=== PATIENT | female | born 1930 | race Caucasian/White ===

== ENCOUNTER 2019-06-26 16:25 | Observation (INO) ==
--- NOTE | 2019-06-26 17:00 | Emergency Department Note ---
History of Present Illness General Chief complaint: Chest Pain Stated complaint: CHEST PAIN Time Seen by Provider: 06/26/19 16:37 Source: patient and family Limitations: no limitations History of Present Illness Patient comes in as described above. She is brought in by EMS after having chest pain in her left shoulder today. She says she had left shoulder chest pain yesterday most of the day but it got worse today and was in her chest. It started this afternoon. She took a nitro and seemed to help EMS arrived they gave her 324 of aspirin as well as a second nitro spray now she has no pain. She has a history of angina. She normally walks without any chest pain or problems. She has been tired her last couple days. She felt like her heart was racing. She is had no diaphoresis. She has slight nausea but no vomiting. She has no history of similar complaints in the past. No fever chills or nausea vomiting. No flulike symptoms. No bowel or bladder problems. No blood or melena stool. Home Medications Home Medications Medication Instructions Recorded Confirmed Type aspirin [Aspir-81] 81 mg PO HS 06/26/19 06/26/19 History calcium carbonate [Calcium 600] 600 mg PO BID 06/26/19 06/26/19 History cinnamon bark [Cinnamon] 500 mg PO DAILY 06/26/19 06/26/19 History cyanocobalamin (vitamin B-12) 250 mcg PO HS 06/26/19 06/26/19 History [Vitamin B-12] diltiazem HCl [Cardizem CD] 120 mg PO QAM 06/26/19 06/26/19 History empagliflozin [Jardiance] 10 mg PO QAM 06/26/19 06/26/19 History ezetimibe-simvastatin [Vytorin 1 tab PO PM 06/26/19 06/26/19 History 10-10] flaxseed oil 1,000 mg PO BID 06/26/19 06/26/19 History fluticasone propionate [Flonase 2 spray INTRANASAL DAILY 06/26/19 06/26/19 History Allergy Relief] glucosamine sulfate [Glucosamine] 500 mg PO QAM 06/26/19 06/26/19 History hydrochlorothiazide 25 mg PO QAM 06/26/19 06/26/19 History levalbuterol tartrate [Xopenex HFA] 1 puff INHALATION Q4H PRN 06/26/19 06/26/19 History levothyroxine [Levoxyl] 50 mcg PO QAM 06/26/19 06/26/19 History lorazepam [Ativan] 0.5 mg PO Q6H PRN 06/26/19 06/26/19 History magnesium oxide 400 mg PO DAILY 06/26/19 06/26/19 History metoprolol succinate [Toprol XL] 50 mg PO QAM 06/26/19 06/26/19 History dimoirdp-xjm-GD-lycopen-lutein 1 tab PO DAILY 06/26/19 06/26/19 History [Centrum Silver] nitroglycerin [Nitrostat] 0.4 mg SUBLINGUAL UD 06/26/19 06/26/19 History potassium chloride [Klor-Con M10] 10 meq PO TID 06/26/19 06/26/19 History ranitidine HCl 300 mg PO HS 06/26/19 06/26/19 History vitamin E 200 unit PO BID 06/26/19 06/26/19 History Allergies Allergy/AdvReac Type Severity Reaction Status Date / Time adhesive Allergy Unknown Verified 06/26/19 18:08 Penicillins Allergy Unknown Verified 06/26/19 18:08 FLACO Inhibitors AdvReac Intermediate COUGH Verified 06/26/19 18:08 Past Med/Surg History Social History Feels Safe at Home: Yes Smoking Status: Never smoker Immunizations: Past medical historyshe has a history of arrhythmia and is followed by Dr. Orlando. Denies history of heart attack. She is a type II diabetic and is on pills for this. Denies that she is on any blood thinners. SHX:Smoker. Lives independently Review of Systems A total of 10 systems reviewed and were otherwise negative Physical Exam Vital Signs Vital Signs - 24 hr 06/26/19 16:31 06/26/19 16:38 06/26/19 16:43 Temperature 36.2 C L Temperature Source Oral Pulse Rate 82 75 75 Pulse Rate from SpO2 Sensor 78 76 Respiratory Rate 18 18 18 Blood Pressure 163/103 H 163/103 H Blood Pressure Mean 120 123 Pulse Oximetry 94 96 95 Oxygen Delivery Method Room Air Sepsis Recent Fever Within 48 Hours No Sepsis Action Taken by Nursing No Action Required 06/26/19 17:00 06/26/19 17:30 06/26/19 17:31 Temperature Temperature Source Pulse Rate 72 75 80 Pulse Rate from SpO2 Sensor 82 88 83 Respiratory Rate 17 21 14 Blood Pressure 156/82 H 175/94 H Blood Pressure Mean 112 104 Pulse Oximetry 94 94 95 Oxygen Delivery Method Sepsis Recent Fever Within 48 Hours Sepsis Action Taken by Nursing 06/26/19 17:32 06/26/19 17:36 06/26/19 18:00 Temperature Temperature Source Pulse Rate 79 75 Pulse Rate from SpO2 Sensor 78 Respiratory Rate 18 19 Blood Pressure Blood Pressure Mean Pulse Oximetry 96 96 Oxygen Delivery Method Room Air Sepsis Recent Fever Within 48 Hours Sepsis Action Taken by Nursing 06/26/19 18:01 06/26/19 18:30 06/26/19 18:31 Temperature Temperature Source Pulse Rate 76 73 71 Pulse Rate from SpO2 Sensor 84 66 77 Respiratory Rate 19 18 13 Blood Pressure 131/72 140/82 Blood Pressure Mean 82 100 Pulse Oximetry 95 95 96 Oxygen Delivery Method Sepsis Recent Fever Within 48 Hours Sepsis Action Taken by Nursing General: Well developed well nourish older female who appears in no acute distress, breathing comfortably on room air. Normal speech HEENT: Normal cephalic atraumatic. Pupils are equal round and reactive to light. Extraocular movements are intact. Oropharynx is pink with moist mucous membranes. No swelling of the mouth lips or tongue. Neck: Supple with a midline trachea. No meningeal signs or stiffness, no JVD or bruits. No Stridor. Chest: Clear to auscultation bilaterally. No wheezes or rhonchi. No increased work of breathing. Heart: Regular rate and rhythm without murmurs or gallops. Abdomen: Soft nontender, nondistended without rebound guarding or rigidity. Extremities: No cyanosis clubbing or edema. No calf tenderness or assymetry Spine/Back. Non tender to palpation. No CVA tenderness Skin: Good turgor without rashes. Neurologic exam: Cranial nerves two through 12 are intact. Motor and sensation are intact and symmetrical throughout. Course Administered Medications Discontinued Medications Potassium Chloride (Klor-Con M20) 40 meq PO NOW STA Stop: 06/26/19 18:44 Last Admin: 06/26/19 18:51 Dose: 40 meq Documented by: [id number] Medical Decision Making Differential Diagnosis Acute coronary syndrome, [place], electrolyte or metabolic abnormality, CHF, GERD, musculoskeletal, arthritis, pulmonary disease Medical Records Attestation: I reviewed the patient's medical records. Home Medications Current Medication List: was personally reviewed by me Laboratory Data Attestation: I reviewed the patient's lab results. Result diagrams: 06/26/19 17:35 06/26/19 17:35 Lab Results 06/26/19 06/26/19 06/26/19 Range/Units 17:35 17:35 17:35 WBC 10.04 (4.8-10.8) K/uL RBC 4.98 (4.2-5.4) M/uL Hgb 16.5 H (12.0-16.0) g/dL Hct 47.2 H (37-47) % MCV 94.8 (80-100) fL MCH 33.1 (25-34) pg MCHC 35.0 (32-36) g/dL RDW Std Deviation 41.5 (36.4-46.3) fL RDW Coeff of Jenelle 12.0 (11.5-14.5) % Plt Count 194 (130-400) K/uL MPV 9.5 (7.4-10.4) fL Immature Gran % (Auto) 0.2 % Neut % (Auto) 81.7 % Lymph % (Auto) 9.0 % [place] % (Auto) 8.4 % Eos % (Auto) 0.5 % Baso % (Auto) 0.2 % Immature Gran # (Auto) 0.02 (0.00-0.02) K/uL Neut # (Auto) 8.21 H (1.4-6.5) K/uL Lymph # (Auto) 0.90 L (1.2-3.4) K/uL [place] # (Auto) 0.84 H (0.11-0.59) K/uL Eos # (Auto) 0.05 (0-0.5) K/uL Baso # (Auto) 0.02 (0-0.2) K/uL PT 10.6 (9.0-12.0) Seconds INR 1.0 (0.9-1.1) APTT 26.7 (21.0-31.0) Seconds PTT Ratio 1.0 Sodium 132 L (136-145) mmol/L Potassium 3.0 L (3.5-5.1) mmol/L Chloride 94 L (98-107) mmol/L Carbon Dioxide 29 (21-32) mmol/L Anion Gap 9.0 (3-11) BUN 18 (7-18) mg/dl Creatinine 0.93 (0.6-1.2) mg/dl Est Cr Clr Drug Dosing 37.8 ml/min Est GFR ( Amer) 63.6 Est GFR (Non-Af Amer) 54.9 BUN/Creatinine Ratio 19.6 (10-20) Glucose 218 H (70-99) mg/dl Calcium 9.3 (8.5-10.1) mg/dl Total Bilirubin 0.2 (0.2-1) mg/dl AST 30 (15-37) U/L ALT 40 (12-78) U/L Alkaline Phosphatase 65 (45-117) U/L Troponin I < 0.015 (0-0.045) ng/ml Total Protein 7.6 (6.4-8.2) gm/dl Albumin 3.8 (3.4-5.0) gm/dl Globulin 3.8 (2.5-4.0) gm/dl Albumin/Globulin Ratio 1.0 (0.9-2) Lipase 164 (73-393) U/L Specimen Hemolysis Imaging Data Attestation: I personally reviewed and interpreted this imaging study as follows: My Impression: No acute Infiltrate, failure, or pneumothorax seen Radiologist's Impression: Chest x-ray: No acute findings. Please refer to report ECG Data Attestation: I personally reviewed and interpreted this ECG as follows: Indication: + chest pain Rate (beats per minute): 76 Rhythm: + normal sinus ECG Intervals/blocks: + Normal QRS and + Normal [place] ECG [place]: + Normal ECG Findings: + PACs and + Other (Nonspecific T wave abnormality) Comparison ECG Date: from (10/26/05) Change: the following changes noted (Ns t waves now present) Additional Comments: EKG #2: Normal sinus rhythm with PACs. Rate of 77. Nonspecific T wave abnormality. Normal QRS. Normal QT. No significant change compared to EKG #1 MDM Narrative This patient comes in as described above. She had an episode of chest and arm pain it responded nitro. She has received aspirin patient history of cardiac disease. She looks well at present. EKG does not appear to be ischemic or have signs of a STEMI. Multiple blood testing was obtained. Her EKG does look slightly different inferiorly than before. She started having some neck discomfort while she was here repeated EKG and the second EKG is unchanged. The first some of this does seem to be muscular or arthritic however.I am worried t hat she does have chest pain and got better with nitro and does have a history of cardiac disease. I do think she should be admitted/observed. Chest x-ray was unremarkable does not suggest congestive heart failure, pneumonia, or pneumothorax. She has no acute electrolyte or metabolic abnormalities. Thus far her cardiac biomarkers are within normal limits. I have consulted the [facility] hospitalist to see her in the ER for these measures. Impression & Plan Chest pain, Neck pain, Acute shoulder pain, Heart palpitations Discharge Plan Visit Data Chief Complaint: Chest Pain Stated Complaint: CHEST PAIN ED Provider: Wilder White Discharge Problem: Chest pain, Neck pain, Acute shoulder pain, Heart palpitations Forms Stand Alone Forms: My [facility] [place] Prescriptions Prescriptions: No Action vitamin E 200 unit Capsule 200 unit PO BID RF: 0 metoprolol succinate [Toprol XL] 50 mg tablet extended release 24 hr 50 mg PO QAM RF: 0 ranitidine HCl 300 mg tablet 300 mg PO HS RF: 0 glucosamine sulfate [Glucosamine] 500 mg Tablet 500 mg PO QAM RF: 0 cyanocobalamin (vitamin B-12) [Vitamin B-12] 250 mcg Tablet 250 mcg PO HS RF: 0 aspirin [Aspir-81] 81 mg Tablet,Delayed Release (Dr/Ec) 81 mg PO HS RF: 0 calcium carbonate [Calcium 600] 600 mg calcium (1,500 mg) Tablet 600 mg PO BID RF: 0 flaxseed oil 1,000 mg Capsule 1,000 mg PO BID RF: 0 lorazepam [Ativan] 0.5 mg Tablet 0.5 mg PO Q6H PRN (Reason: Anxiety) RF: 0 levothyroxine [Levoxyl] 50 mcg tablet 50 mcg PO QAM RF: 0 nitroglycerin [Nitrostat] 0.4 mg tablet, sublingual 0.4 mg sublingual UD RF: 0 diltiazem HCl [Cardizem CD] 120 mg capsule,extended release 24hr 120 mg PO QAM RF: 0 hydrochlorothiazide 25 mg tablet 25 mg PO QAM RF: 0 fluticasone propionate [Flonase Allergy Relief] 50 mcg/actuation [place],Suspension 2 spray INTRANASAL DAILY RF: 0 potassium chloride [Klor-Con M10] 10 mEq tablet,ER particles/crystals 10 meq PO TID RF: 0 cinnamon bark [Cinnamon] 500 mg Capsule 500 mg PO DAILY RF: 0 ezetimibe-simvastatin [Vytorin 10-10] 10-10 mg tablet 1 tab PO PM RF: 0 Centrum Silver 0.4-300-250 mg-mcg-mcg Tablet 1 tab PO DAILY RF: 0 levalbuterol tartrate [Xopenex HFA] 45 mcg/actuation HFA aerosol inhaler 1 puff INHALATION Q4H PRN (Reason: Wheezing) RF: 0 magnesium oxide 400 mg magnesium Capsule 400 mg PO DAILY RF: 0 Jardiance 10 mg tablet 10 mg PO QAM RF: 0 Discharge Problem: Chest pain Qualifiers: Chest pain type: unspecified Qualified Code(s): R07.9 - Chest pain, unspecified Acute shoulder pain Qualifiers: Laterality: left Qualified Code(s): M25.512 - Pain in left shoulder
--- NOTE | 2019-06-26 17:20 | XRay Report ---
XR chest 1V portable CLINICAL HISTORY: Chest Pain COMPARISON STUDY: No previous studies for comparison. FINDINGS: The bones soft tissues and hemidiaphragms are normal. The cardiomediastinal silhouette is n ormal. The lungs are clear. The pulmonary vasculature is normal. IMPRESSION: Negative chest. ACT 112: Negative or not required by law. The above report was generated using voice recognition software. It may contain grammatical, syntax or spelling errors. Electronically signed by: Ulysses Dooley M.D. 06/26/2019 5:18 PM
[2019-06-26 17:46] LABS: Basophils # (auto) 0.02 K/uL (0-0.2); Basophils % (auto) 0.2 %; Eosinophils # (auto) 0.05 K/uL (0-0.5); Eosinophils % (auto) 0.5 %; Hematocrit (blood only) 47.2 % (37-47); Hemoglobin 16.5 g/dL (12.0-16.0); Immature Granulocytes # (auto) 0.02 K/uL (0.00-0.02); Immature Granulocytes % (auto) 0.2 %; Mean Corpuscular Hemoglobin 33.1 pg (25-34); Mean Corpuscular Volume 94.8 fL (80-100); Mean Platelet Volume 9.5 fL (7.4-10.4); Monocytes # (auto) 0.84 K/uL (0.11-0.59); Monocytes % (auto) 8.4 %; Neutrophils # (auto) 8.21 K/uL (1.4-6.5); Neutrophils % (auto) 81.7 %; Platelet Count 194 K/uL (130-400); RDW Standard Deviation 41.5 fL (36.4-46.3); Red Blood Count 4.98 M/uL (4.2-5.4); White Blood Count 10.04 K/uL (4.8-10.8)
[2019-06-26 18:03] LABS: Partial Thromboplastin Time 26.7 Seconds (21.0-31.0); Prothrombin Time 10.6 Seconds (9.0-12.0)
[2019-06-26 18:19] LABS: Alanine Aminotransferase 40 U/L (12-78); Albumin Level 3.8 gm/dl (3.4-5.0); Alkaline Phosphatase 65 U/L (45-117); Aspartate Aminotransferase 30 U/L (15-37); BUN Creatinine Ratio 19.6 (10-20); Bilirubin,Total 0.2 mg/dl (0.2-1); Blood Urea Nitrogen 18 mg/dl (7-18); Calcium 9.3 mg/dl (8.5-10.1); Carbon Dioxide 29 mmol/L (21-32); Chloride 94 mmol/L (98-107); Creatinine Clr Calc Pharmacy 37.8 ml/min; Est GFR (African American) 63.6; Est GFR (Non-African American) 54.9; Globulin 3.8 gm/dl (2.5-4.0); Glucose 218 mg/dl (70-99); Lipase 164 U/L (73-393); Sodium 132 mmol/L (136-145); Total Protein 7.6 gm/dl (6.4-8.2); Troponin I < 0.015 ng/ml (0-0.045)
[2019-06-26] MEDS ORDERED: POTASSIUM CHLORIDE 20 MEQ TABCR PO STA (18:43)
[2019-06-26] MEDS ORDERED: POTASSIUM CHLORIDE 10 MEQ TABCR PO STA (19:53)
[2019-06-26 20:25] LABS: Troponin I < 0.015 ng/ml (0-0.045)
--- NOTE | 2019-06-26 21:06 | XRay Report ---
XR shoulder LT min 2V routine CLINICAL HISTORY: Left shoulder pain COMPARISON: None. DISCUSSION: No acute fractures or dislocations are visualized. There are no erosive or destructive ch anges. There are no visible periarticular calcifications. There are mild degenerative changes. IMPRESSION: 1. Mild degenerative change 2. No fractures identified ACT 112: Negative or not required by law. Electronically signed by: Lincoln Mccain M.D. 06/26/2019 9:04 PM
--- NOTE | 2019-06-26 21:31 | History & Physical Report ---
Date of Service June 26, 2019 Assessment & Plan (1) Chest pain: Pt is 89 y/o F with PMH paroxysmal atrial tachycardia, HTN, HLD, mildly dilated aortic root, DM II, hypothyroidism presented to ER with complaint left shoulder pain starting 1-2 days ago and today with onset of anterior chest pain with palpations. EMS gave ASA 324mg and 1 spray of nitro with relief of pain In ER P: 75, R: 18, BP: 163/103 down to 140/82, 95% on RA. Initial troponin negative No CP while in ER (2) Hypokalemia: K: 3.0 (3) Paroxysmal atrial tachycardia: (4) HTN (hypertension): (5) HLD (hyperlipidemia): (6) Diabetes mellitus, type II: A1c: 7.7 on 01/30/2019 (7) Hypothyroidism: See Addendum for Assessment and Plan per Dr Mckeon DNR/DNI as per discussion with pt Follows with Dr Morales for routine care History of Present Illness Chief Complaint: CP Primary Care Provider: Sergio Morales MD Pt is 89 y/o F with PMH paroxysmal atrial tachycardia, HTN, HLD, mildly dilated aortic root, DM II, hypothyroidism presented to ER with complaint of chest pain. Patient states 1 to 2 days ago started with left shoulder aching. Today with continued left shoulder pain however also developed sharp anterior chest pain. Reports felt like her heart was racing. States felt nauseated today. Patient states took 1 sublingual nitro at home around 3 PM. EMS gave patient 324 mg aspirin and 1 spray of nitro with relief of chest pain. Denies associated shortness of breath, diaphoresis, dizziness, vomiting. Patient states had one episode of dizziness with standing today. Denies fever/chills, diaphoresis, diarrhea, constipation, NAGY, dizziness, syncope, vision changes, neck pain, orthopnea, cough, sore throat, choking, otalgia, rhinorrhea, abdominal pain, paresthesias, weakness, extremity weakness, extremity edema, rashes, urinary symptoms. History echo 2014: EF 55-59%, grade 1 diastolic dysfunction, normal size aortic root and proximal ascending aorta Allergies Allergy/AdvReac Type Severity Reaction Status Date / Time adhesive Allergy Unknown Verified 06/26/19 18:08 Penicillins Allergy Unknown Verified 06/26/19 18:08 FLACO Inhibitors AdvReac Intermediate COUGH Verified 06/26/19 18:08 Home Medications Home Medications Medication Instructions Recorded Confirmed Type aspirin [Aspir-81] 81 mg PO HS 06/26/19 06/26/19 History calcium carbonate [Calcium 600] 600 mg PO BID 06/26/19 06/26/19 History cinnamon bark [Cinnamon] 500 mg PO DAILY 06/26/19 06/26/19 History cyanocobalamin (vitamin B-12) 250 mcg PO HS 06/26/19 06/26/19 History [Vitamin B-12] diltiazem HCl [Cardizem CD] 120 mg PO QAM 06/26/19 06/26/19 History empagliflozin [Jardiance] 10 mg PO QAM 06/26/19 06/26/19 History ezetimibe-simvastatin [Vytorin 1 tab PO PM 06/26/19 06/26/19 History 10-10] flaxseed oil 1,000 mg PO BID 06/26/19 06/26/19 History fluticasone propionate [Flonase 2 spray INTRANASAL DAILY 06/26/19 06/26/19 History Allergy Relief] glucosamine sulfate [Glucosamine] 500 mg PO QAM 06/26/19 06/26/19 History hydrochlorothiazide 25 mg PO QAM 06/26/19 06/26/19 History levalbuterol tartrate [Xopenex HFA] 1 puff INHALATION Q4H PRN 06/26/19 06/26/19 History levothyroxine [Levoxyl] 50 mcg PO QAM 06/26/19 06/26/19 History lorazepam [Ativan] 0.5 mg PO Q6H PRN 06/26/19 06/26/19 History magnesium oxide 400 mg PO DAILY 06/26/19 06/26/19 History metoprolol succinate [Toprol XL] 50 mg PO QAM 06/26/19 06/26/19 History suidcvgr-elc-BK-lycopen-lutein 1 tab PO DAILY 06/26/19 06/26/19 History [Centrum Silver] nitroglycerin [Nitrostat] 0.4 mg SUBLINGUAL UD 06/26/19 06/26/19 History potassium chloride [Klor-Con M10] 10 meq PO TID 06/26/19 06/26/19 History ranitidine HCl 300 mg PO HS 06/26/19 06/26/19 History vitamin E 200 unit PO BID 06/26/19 06/26/19 History Past Med/Surg History Medical History (Updated 06/26/19 @ 21:41 by Latha Duenas PA-C) Soler's palsy (Resolved) Diabetes mellitus, type II HLD (hyperlipidemia) HTN (hypertension) Hypothyroidism Paroxysmal atrial tachycardia Surgical History (Updated 06/26/19 @ 21:36 by Latha Duenas PA-C) History of colonoscopy Family History (Updated 06/26/19 @ 21:37 by Latha Duenas PA-C) Other Heart disease Social History (Updated 06/26/19 @ 21:37 by Latha Duenas PA-C) Preferred Language: Sinhala Communication Ability: Effective [employer] Required: No Beliefs That Will Affect Care: None Current Living Situation: Alone Other Information That Helps Us Care for You: No Feels Safe at Home: Yes Safety Concerns: Feels Safe At This Time Smoking Status: Never smoker Hx Alcohol Use: No Hx Substance Use: No Review of Systems Review of Systems: All systems reviewed & are unremarkable except as noted in HPI & below Physical Exam Physical Exam: General: no distress, WDWN Head: normocephalic, atraumatic Eyes: PERRL, EOM's intact, conjunctiva non-injected, anicteric ENT: normal inspection external ears, nose, mucous membranes moist Neck: supple, trachea midline; posterior left neck with soft nontender mass Lungs: clear, no respiratory distress, no wheezing/rhonchi/rales CV: RRR, no murmur, no pretibial edema; chest wall without rashes and is non- tender to palpation Abd: normal BS, soft, non-tender Ext: no cyanosis, no calf tenderness Neuro: A&O x 3, no focal deficits noted, normal affect Skin: warm, dry Results & Data Vital Signs (Past 12 Hours) Vital Signs Temp Pulse Resp BP Pulse Ox 06/26/19 18:31 71 13 96 06/26/19 18:30 73 18 140/82 95 06/26/19 18:01 76 19 131/72 95 06/26/19 18:00 75 19 06/26/19 17:36 96 06/26/19 17:32 79 18 96 06/26/19 17:31 80 14 175/94 H 95 06/26/19 17:30 75 21 94 06/26/19 17:00 72 17 156/82 H 94 06/26/19 16:43 75 18 95 06/26/19 16:38 36.2 C L 75 18 163/103 H 96 06/26/19 16:31 82 18 163/103 H 94 Laboratory Results Short CBC 06/26/19 Range/Units 17:35 WBC 10.04 (4.8-10.8) K/uL Hgb 16.5 H (12.0-16.0) g/dL Hct 47.2 H (37-47) % Plt Count 194 (130-400) K/uL BMP 06/26/19 17:35 Sodium 132 L Potassium 3.0 L Chloride 94 L Carbon Dioxide 29 BUN 18 Creatinine 0.93 Glucose 218 H Calcium 9.3 Cardiac Enzymes 06/26/19 06/26/19 Range/Units 17:35 19:55 Troponin I < 0.015 < 0.015 (0-0.045) ng/ml Liver Function 06/26/19 Range/Units 17:35 Total Bilirubin 0.2 (0.2-1) mg/dl AST 30 (15-37) U/L ALT 40 (12-78) U/L Alkaline Phosphatase 65 (45-117) U/L Albumin 3.8 (3.4-5.0) gm/dl Diagnostic Findings CXR: IMPRESSION: Negative chest. LEFT SHOULDER XRAY: IMPRESSION: 1. Mild degenerative change 2. No fractures identified Supervising Physician Co-Signing Physician Notes IM ATTENDING : Patient seen and examined. History obtained from patient, family, and records. Preceding documentation by Ms. Latha Duenas PA-C reviewed. FINAL ASSESSMENT AND PLAN as follows : Chest pain ? Secondary to uncontrolled hypertension Rule out ACS Hx PAT on beta-tori and CCB therapy Hyperlipidemia on statin Rx DM2, on oral medications, reasonable control as of recent outpatient hemoglobin A1c of 7.19 January 2019 Hypokalemia secondary diuretic Rx OBS PCU Add losartan to her regimen if BP still uncontrolled Follow troponin TTE, Cardiology consult RE chest pain Replace potassium, hold home diuretic for now Basal insulin, ISS BG goal [id number], carb count coverage, update hemoglobin A1c DVT prophylaxis. Lovenox subcu DNR Text document was generated using [employer] recognition software. It may contain grammatical or spelling errors. Kindly contact undersigned for clarification of any documentation item in question. (1) Chest pain Chest pain type: unspecified Qualified Code(s): R07.9 - Chest pain, unspecified
[2019-06-26] MEDS ORDERED: LOSARTAN POTASSIUM 25 MG TAB PO STA (22:08)
[2019-06-26] MEDS ORDERED: PROMETHAZINE HCL 12.5 MG in SODIUM CHLORIDE 0.9% 50 ML IV PRN (23:13)
[2019-06-26] MEDS ORDERED: CARBOHYDRATES FOR HYPOGLYCEMIA PO PRN (23:13)
[2019-06-26] MEDS ORDERED: NITROGLYCERIN SL 0.4 MG/TAB TAB SL PRN (23:13)
[2019-06-26] MEDS ORDERED: GLUCOSE 40% GEL 15 GM TUBE PO PRN (23:13)
[2019-06-26] MEDS ORDERED: INSULIN GLARGINE SOLOSTAR 100 UNITS/ML 3 ML PEN SC STA (23:13)
[2019-06-26] MEDS ORDERED: GLUCAGON FOR INJ 1 MG VIAL SQ PRN (23:13)
[2019-06-26] MEDS ORDERED: ACETAMINOPHEN 325 MG TAB PO PRN (23:13)
[2019-06-26] MEDS ORDERED: GLUCOSE 10 TABS/TUBE PO PRN (23:13)
[2019-06-26] MEDS ORDERED: DEXTROSE 50% 50 ML SYRINGE IV PRN (23:13)
[2019-06-26] MEDS ORDERED: TRAMADOL HCL 50 MG TABLET PO PRN (23:13)
[2019-06-26] MEDS ORDERED: LORazepam 0.5 MG TAB PO PRN (23:13)
[2019-06-26] MEDS ORDERED: EZETIMIBE 10 MG TABLET PO SCH (23:30)
[2019-06-26] MEDS ORDERED: SIMVASTATIN 10 MG TAB PO SCH (23:30)
[2019-06-26] MEDS ORDERED: MoRPHine SULFATE 2 MG/ML CARP IV PRN (23:31)
[2019-06-26] MEDS ORDERED: POTASSIUM CHLORIDE 40 MEQ in SODIUM CHLORIDE 0.9% 1000ML 1,000 ML IV ONE (23:45)
[2019-06-27] MEDS: INSULIN ASPART 100 UNITS/ML 3 ML PEN SC SCH ×3 (00:02→12:06)
[2019-06-27 05:56] LABS: Basophils # (auto) 0.02 K/uL (0-0.2); Basophils % (auto) 0.3 %; Eosinophils # (auto) 0.19 K/uL (0-0.5); Eosinophils % (auto) 3.1 %; Hematocrit (blood only) 43.9 % (37-47); Hemoglobin 15.1 g/dL (12.0-16.0); Immature Granulocytes # (auto) 0.01 K/uL (0.00-0.02); Immature Granulocytes % (auto) 0.2 %; Lymphocytes # (auto) 2.02 K/uL (1.2-3.4); Lymphocytes % (auto) 33.1 %; Mean Corpuscular Hgb Conc 34.4 g/dL (32-36); Mean Corpuscular Volume 95.9 fL (80-100); Mean Platelet Volume 9.5 fL (7.4-10.4); Monocytes # (auto) 0.78 K/uL (0.11-0.59); Monocytes % (auto) 12.8 %; Neutrophils # (auto) 3.08 K/uL (1.4-6.5); Neutrophils % (auto) 50.5 %; Platelet Count 187 K/uL (130-400); RDW Coefficient of Variation 12.2 % (11.5-14.5); RDW Standard Deviation 42.8 fL (36.4-46.3); Red Blood Count 4.58 M/uL (4.2-5.4)
[2019-06-27] MEDS ORDERED: LEVOTHYROXINE SODIUM 50 MCG TABLET PO SCH (06:30)
[2019-06-27 06:37] LABS: BUN Creatinine Ratio 20.3 (10-20); Blood Urea Nitrogen 15 mg/dl (7-18); Calcium 8.9 mg/dl (8.5-10.1); Carbon Dioxide 31 mmol/L (21-32); Chloride 104 mmol/L (98-107); Chol HDL Ratio 2; Cholesterol 91 mg/dl (0-200); Creatinine Clr Calc Pharmacy 45.3 ml/min; Est GFR (African American) 83.8; Est GFR (Non-African American) 72.3; Glucose 126 mg/dl (70-99); HDL Cholesterol 61 mg/dl; LDL Cholesterol Calculated 16 mg/dl; Sodium 138 mmol/L (136-145); Triglycerides 68 mg/dl (0-150); Troponin I < 0.015 ng/ml (0-0.045); VLDL Cholesterol 14 mg/dl
[2019-06-27 06:57] LABS: Estimated Average Glucose 174 mg/dl; Hemoglobin A1C 7.7 % (4.5-5.6)
[2019-06-27] MEDS: ENOXAPARIN INJ 30 MG/0.3 ML SYR SQ SCH ×2 (07:58→08:04)
[2019-06-27] MEDS ORDERED: METOPROLOL SUCC 50MG EXT REL TAB PO SCH (09:00)
[2019-06-27] MEDS ORDERED: GLUCOSAMINE SULFATE 500 MG CAP PO SCH (09:00)
[2019-06-27] MEDS ORDERED: FLUTICASONE PROPIONATE NA SPR 16 GM BTL SCH (09:00)
[2019-06-27] MEDS ORDERED: dilTIAZem HCL 120 MG CAPCR PO SCH (09:00)
[2019-06-27] MEDS ORDERED: LIDOCAINE 2% JELLY 5 ML TUBE EXT SCH (11:45)
--- NOTE | 2019-06-27 12:05 | Cardiology Consultation ---
Date of Consultation June 27, 2019 Assessment & Plan (1) Acute shoulder pain: Patient presented with left Scapular pain and left shoulder pain. Serial EKG and troponin levels negative. The discomfort does not come on with aerobic exertion. I think the likelihood of this being an anginal equivalent is low. Continue current dose aspirin beta-tori, statin. Resting echocardiogram today reveals normal LV wall motion normal LVEF. (2) Heart palpitations: No documented episodes of recurrent atrial tachycardia thus far this admission, but she has had frequent PACs. Perhaps related to the hypokalemia, her presenting potassium was 3, and is now 4.Continue prior to hospital doses of metoprolol and diltiazem. (3) Hypokalemia: Improved with supplementation. (4) HTN (hypertension): Agree with addition of losartan. History of Present Illness Attending Physician: Renetta Wilkerson MD History of Present Illness Cehrie Wright is an 89 year old female seen in cardiology consultation per the request of Dr. Valencia for the evaluation of back and arm pain, and sensation of "Racing heart rate".The patient's primary service learning coordinator is Dr. Orlando of our practice. At the time of her most recent cardiology follow-up visit with Dr. Orlando in 04/23/2019 she describes stable cardiac signs and symptoms. She was monitoring her steps with a Fitbit device and trying to achieve 10,000 steps per day. She noted an occasional sensation of a "blip "in her heart rate, but no sustained arrhythmia related complaints. She describes a 2-day episode of feeling an occasional discomfort over her left shoulder blade. This culminated last evening and a sensation of feeling her heart race. On EKG assessment upon presentation to the emergency room as well as on telemetry overnight last night, stable sinus rhythm has been noted with first-degree AV block, and no sustained arrhythmias.Troponin has been negative on a serial basis x3 thus far.Shortly after my assessment for this morning, she noted left shoulder discomfort. An EKG performed at that time revealed no significant repolarization changes with nonspecific lateral repolarization changes unchanged compared to her previous outpatient EKG dating back to 2018. Cardiology Problem List: 1. Paroxysmal atrial tachycardia, for which patient is on metoprolol and diltiazem outside hospital 2. Hypertensive heart disease 3. Dyslipidemia 4. Mild aortic root dilatation 5. Type 2 diabetes mellitus Allergies Allergy/AdvReac Type Severity Reaction Status Date / Time adhesive Allergy Unknown Verified 06/26/19 18:08 Penicillins Allergy Unknown Verified 06/26/19 18:08 FLACO Inhibitors AdvReac Intermediate COUGH Verified 06/26/19 18:08 Home Medications Home Medications Medication Instructions Recorded Confirmed Type aspirin [Aspir-81] 81 mg PO HS 06/26/19 06/26/19 History calcium carbonate [Calcium 600] 600 mg PO BID 06/26/19 06/26/19 History cinnamon bark [Cinnamon] 500 mg PO DAILY 06/26/19 06/26/19 History cyanocobalamin (vitamin B-12) 250 mcg PO HS 06/26/19 06/26/19 History [Vitamin B-12] diltiazem HCl [Cardizem CD] 120 mg PO QAM 06/26/19 06/26/19 History empagliflozin [Jardiance] 10 mg PO QAM 06/26/19 06/26/19 History ezetimibe-simvastatin [Vytorin 1 tab PO PM 06/26/19 06/26/19 History 10-10] flaxseed oil 1,000 mg PO BID 06/26/19 06/26/19 History fluticasone propionate [Flonase 2 spray INTRANASAL DAILY 06/26/19 06/26/19 History Allergy Relief] glucosamine sulfate [Glucosamine] 500 mg PO QAM 06/26/19 06/26/19 History hydrochlorothiazide 25 mg PO QAM 06/26/19 06/26/19 History levalbuterol tartrate [Xopenex HFA] 1 puff INHALATION Q4H PRN 06/26/19 06/26/19 History levothyroxine [Levoxyl] 50 mcg PO QAM 06/26/19 06/26/19 History lorazepam [Ativan] 0.5 mg PO Q6H PRN 06/26/19 06/26/19 History magnesium oxide 400 mg PO DAILY 06/26/19 06/26/19 History metoprolol succinate [Toprol XL] 50 mg PO QAM 06/26/19 06/26/19 History pnvsxgrk-qzw-FQ-lycopen-lutein 1 tab PO DAILY 06/26/19 06/26/19 History [Centrum Silver] nitroglycerin [Nitrostat] 0.4 mg SUBLINGUAL UD 06/26/19 06/26/19 History potassium chloride [Klor-Con M10] 10 meq PO TID 06/26/19 06/26/19 History ranitidine HCl 300 mg PO HS 06/26/19 06/26/19 History vitamin E 200 unit PO BID 06/26/19 06/26/19 History Patient History Medical History Soler's palsy (Resolved) Diabetes mellitus, type II HLD (hyperlipidemia) HTN (hypertension) Hypothyroidism Paroxysmal atrial tachycardia Surgical History History of colonoscopy Family History (Updated 06/26/19 @ 21:37 by Latha Duenas PA-C) Other Heart disease Social History Preferred Language: Slovak Communication Ability: Effective Member Service Specialist Required: No Beliefs That Will Affect Care: None Current Living Situation: Alone Other Information That Helps Us Care for You: No Feels Safe at Home: Yes Safety Concerns: Feels Safe At This Time Smoking Status: Never smoker Hx Alcohol Use: No Hx Substance Use: No Review of Systems Review of Systems: All systems reviewed & are unremarkable except as noted in HPI & below Physical Exam Physical Exam: Temp Pulse Resp BP Pulse Ox 37.0 C 69 18 152/79 H 95 06/27/19 11:30 06/27/19 11:30 06/27/19 11:30 06/27/19 11:30 06/27/19 11:30 Constitutional: WD/WN, vitals as above Respiratory: normal respiratory effort, lungs clear to auscultation Cardiovascular: RRR, no murmur, no edema Gastrointestinal (Abdomen): normal bowel sounds, soft, nontender, no hepatosplenomegaly Musculoskeletal: no cyanosis or clubbing, extremities motor strength 5/5 Neurologic: PERRL, EOMI, accommodation nl, no face palsy, no dysarthria Results & Data ([facility]) Vital Signs (Past 12 Hours) Vital Signs Temp Pulse Pulse Resp BP Pulse Ox 06/27/19 11:30 37.0 C 69 18 152/79 H 95 06/27/19 09:42 65 06/27/19 08:00 36.8 C 77 18 149/76 H 98 06/27/19 03:09 36.8 C 74 16 158/82 H 97 06/27/19 00:00 67 Laboratory Results Cardiac Enzymes 06/26/19 06/26/19 06/27/19 Range/Units 17:35 19:55 05:24 AST 30 (15-37) U/L Troponin I < 0.015 < 0.015 < 0.015 (0-0.045) ng/ml Coagulation 06/26/19 Range/Units 17:35 PT 10.6 (9.0-12.0) Seconds APTT 26.7 (21.0-31.0) Seconds Lipids 06/27/19 Range/Units 05:24 Triglycerides 68 (0-150) mg/dl Cholesterol 91 (0-200) mg/dl HDL Cholesterol 61 mg/dl Cholesterol/HDL Ratio 2 CBC 06/26/19 06/27/19 Range/Units 17:35 05:24 WBC 10.04 6.10 (4.8-10.8) K/uL RBC 4.98 4.58 (4.2-5.4) M/uL Hgb 16.5 H 15.1 (12.0-16.0) g/dL Hct 47.2 H 43.9 (37-47) % Plt Count 194 187 (130-400) K/uL Neut # (Auto) 8.21 H 3.08 (1.4-6.5) K/uL Lymph # (Auto) 0.90 L 2.02 (1.2-3.4) K/uL [place] # (Auto) 0.84 H 0.78 H (0.11-0.59) K/uL Eos # (Auto) 0.05 0.19 (0-0.5) K/uL Baso # (Auto) 0.02 0.02 (0-0.2) K/uL Comprehensive Metabolic Panel 06/26/19 06/27/19 Range/Units 17:35 05:24 Sodium 132 L 138 (136-145) mmol/L Potassium 3.0 L 4.0 D (3.5-5.1) mmol/L Chloride 94 L 104 (98-107) mmol/L Carbon Dioxide 29 31 (21-32) mmol/L BUN 18 15 (7-18) mg/dl Creatinine 0.93 0.74 (0.6-1.2) mg/dl Glucose 218 H 126 H (70-99) mg/dl Calcium 9.3 8.9 (8.5-10.1) mg/dl AST 30 (15-37) U/L ALT 40 (12-78) U/L Alkaline Phosphatase 65 (45-117) U/L Total Protein 7.6 (6.4-8.2) gm/dl Albumin 3.8 (3.4-5.0) gm/dl Intake and Output 06/26/19 06/27/19 06/27/19 22:59 06:59 14:59 Output Total 500 / 500 Balance -500 / -500 Output: Urine 500 / 500 Other: Weight 68.039 kg 68.2 kg Diagnostic Findings EKG performed 06/26/2019 at 1632 and reviewed independently: Sinus rhythm at 76 bpm, borderline first-degree AV block, nonspecific T wave abnormality noted in the anterior and lateral leads. Repeat EKG performed 06/26/2019 1715: Sinus rhythm with frequent premature atrial contractions EKG performed 06/27/2019 at 10:01 AM: Sinus rhythm at 74 bpm, With first-degree AV block, ME interval 212 ms, premature atrial contractions. Summary of TTecho performed today: The left ventricular wall motion is normal. No regional wall motion abnormalities noted. The LV Ejection Fraction = 55-60%. Mild sclerosis without aortic valve stenosis is present. The aortic root diameter is normal. Most proximal portion of the ascending thoracic aorta is mildly dilated, 4.2 cm Grade I diastolic dysfunction, (abnormal relaxation pattern). The interatrial septum bows toward right atrium consistent with elevated left atrial pressure. (1) Acute shoulder pain Laterality: left Qualified Code(s): M25.512 - Pain in left shoulder
--- NOTE | 2019-06-27 17:49 | Electrocardiogram Report ---
Test Reason : Blood Pressure : / mmHG Vent. Rate : 077 BPM Atrial Rate : 077 BPM P-R Int : 182 ms QRS Dur : 090 ms QT Int : 404 ms P-R-T Axes : 077 004 032 degrees QTc Int : 457 ms Sinus rhythm with Blocked Premature atrial complexes Nonspecific T wave abnormality Anterior leads Abnormal ECG When compared with ECG of 26-JUN-2019 16:32, No significant change was found Confirmed by Eliel Dinero ([id number]) on 06/27/2019 5:49:34 PM Referred By: REFERRED SELF Confirmed By:Eliel Dinero
--- NOTE | 2019-06-27 17:49 | Electrocardiogram Report ---
Test Reason : Blood Pressure : / mmHG Vent. Rate : 076 BPM Atrial Rate : 076 BPM P-R Int : 184 ms QRS Dur : 090 ms QT Int : 386 ms P-R-T Axes : 071 020 061 degrees QTc Int : 434 ms Sinus rhythm with Premature atrial complexes Nonspecific T wave abnormality Anterior leads Abnormal ECG When compared with ECG of 26-OCT-2005 06:49, Nonspecific T wave abnormality now evident in Anterior leads Confirmed by Eliel Dinero ([id number]) on 06/27/2019 5:49:16 PM Referred By: REFERRED SELF Confirmed By:Eliel Dinero
[2019-06-27] MEDS ORDERED: ASPIRIN 81 MG ECTAB PO SCH (21:00)
[2019-06-27] MEDS ORDERED: INSULIN GLARGINE SOLOSTAR 100 UNITS/ML 3 ML PEN SC SCH (21:00)
[2019-06-27] MEDS ORDERED: LOSARTAN POTASSIUM 25 MG TAB PO SCH (21:00)
--- NOTE | 2019-06-28 12:12 | Electrocardiogram Report ---
Test Reason : Blood Pressure : / mmHG Vent. Rate : 074 BPM Atrial Rate : 074 BPM P-R Int : 212 ms QRS Dur : 082 ms QT Int : 400 ms P-R-T Axes : 060 023 053 degrees QTc Int : 444 ms Sinus rhythm with 1st degree A-V block with Premature atrial complexes Otherwise normal ECG When compared with ECG of 26-JUN-2019 17:15, RI interval has increased Nonspecific T wave abnormality Anterior leads no longer present Confirmed by Eliel Dinero ([id number]) on 06/28/2019 12:12:33 PM Referred By: REFERRED SELF Confirmed By:Eliel Dinero
--- NOTE | 2019-06-29 07:44 | Discharge Summary ---
Date of Service June 27, 2019 Admission HPI Per Admitting Provider Pt is 89 y/o F with PMH paroxysmal atrial tachycardia, HTN, HLD, mildly dilated aortic root, DM II, hypothyroidism presented to ER with complaint of chest pain. Patient states 1 to 2 days ago started with left shoulder aching. Today with continued left shoulder pain however also developed sharp anterior chest pain. Reports felt like her heart was racing. States felt nauseated today. Patient states took 1 sublingual nitro at home around 3 PM. EMS gave patient 324 mg aspirin and 1 spray of nitro with relief of chest pain. Denies associated shortness of breath, diaphoresis, dizziness, vomiting. Patient states had one episode of dizziness with standing today. Denies fever/chills, diaphoresis, diarrhea, constipation, NAGY, dizziness, syncope, vision changes, neck pain, orthopnea, cough, sore throat, choking, otalgia, rhinorrhea, abdominal pain, paresthesias, weakness, extremity weakness, extremity edema, rashes, urinary symptoms. History echo 2014: EF 55-59%, grade 1 diastolic dysfunction, normal size aortic root and proximal ascending aorta Admission Exam Per Admitting Provider General: no distress, WDWN Head: normocephalic, atraumatic Eyes: PERRL, EOM's intact, conjunctiva non-injected, anicteric ENT: normal inspection external ears, nose, mucous membranes moist Neck: supple, trachea midline; posterior left neck with soft nontender mass Lungs: clear, no respiratory distress, no wheezing/rhonchi/rales CV: RRR, no murmur, no pretibial edema; chest wall without rashes and is non- tender to palpation Abd: normal BS, soft, non-tender Ext: no cyanosis, no calf tenderness Neuro: A&O x 3, no focal deficits noted, normal affect Skin: warm, dry Principal Diagnosis Acute shoulder pain Heart palpitations: Hypokalemia: HTN (hypertension): Discharge Exam General- No acute distress Head- atraumatic Eyes- PERRL, EOMI, ENT- oropharynx clear Neck- supple, no JVD Lungs- clear to auscultation Heart- regular rhythm; no murmur Abdomen- normal bowel sounds, soft, nontender Extremities- no calf tenderness Neuro- alert, oriented x 3; PERRL, EOMI; no facial palsy; no dysarthria Skin- warm & dry Discharge Data Allergies Allergy/AdvReac Type Severity Reaction Status Date / Time adhesive Allergy Unknown Verified 06/26/19 18:08 Penicillins Allergy Unknown Verified 06/26/19 18:08 FLACO Inhibitors AdvReac Intermediate COUGH Verified 06/26/19 18:08 Consultations 06/26/19 20:24 ED Decision to Admit Stat 06/26/19 23:13 Consult Cardiology Routine Ordered Studies XR chest 1V portable CLINICAL HISTORY: Chest Pain COMPARISON STUDY: No previous studies for comparison. FINDINGS: The bones soft tissues and hemidiaphragms are normal. The cardiomediastinal silhouette is normal. The lungs are clear. The pulmonary vasculature is normal. IMPRESSION: Negative chest. ACT 112: Negative or not required by law. The above report was generated using voice recognition software. It may contain grammatical, syntax or spelling errors. Electronically signed by: Ulysses Dooley M.D. 06/26/2019 5:18 PM Dictated: 06/26/191710 Transcribed: 06/26/191710 XR shoulder LT min 2V routine CLINICAL HISTORY: Left shoulder pain COMPARISON: None. DISCUSSION: No acute fractures or dislocations are visualized. There are no erosive or destructive changes. There are no visible periarticular calcifications. There are mild degenerative changes. IMPRESSION: 1. Mild degenerative change 2. No fractures identified ACT 112: Negative or not required by law. Electronically signed by: Lincoln Mccain M.D. 06/26/2019 9:04 PM Dictated: 06/26/192103 Transcribed: 06/26/192103` Hospital Course (1) Chest pain: Present on admission with left shoulder pain, chest pain and palpitation relief by nitro Troponin x3 negative EKG showed no ischemic changes ECHO showed normal LV wall motion with EF 55-60 Currently denies any chest pain, but neck pain Neck pain relieved after applied lidocaine gel Walking in the hallway with no discomfort Continue aspirin, metoprolol and Vytorin Case discussed with cardiology OK from cardiology standpoint to discharge home Clinically stable (2) Hypokalemia: Possible related to HCTZ K: 4 today Hold K for now since HCTZ changed to Losartan Check BMP in 1 week (3) Paroxysmal atrial tachycardia: Stable Continue Metoprolol and Cardizem (4) HTN (hypertension): BP stable HCTZ changed to Losartan Continue Metoprolol and Imdur Monitor BP (5) HLD (hyperlipidemia): Continue Vytorin (6) Diabetes mellitus, type II: A1c: 7.7 on 06/26/19 Continue outpatient diabetes med on discharge (7) Hypothyroidism: Continue Levothyroxine DVT px on Lovenox subq Total Time Total Time Spent Total Time Spent (In Minutes): 35 minutes Total Time Includes: Examination of the Patient, Discharge Planning, Medication Reconciliation, Communication With Other Providers and Other Discharge Plan Discharge Items Patient Disposition: Home - Self-Care Reason For Visit: CHEST PAIN Discharge Diagnosis: Acute shoulder pain Heart palpitations: Hypokalemia: HTN (hypertension): Activity: Resume your previous activity Non-emergency contact: Primary Care Provider Call non-emergency contact if: you have any medication questions Follow-up/Referrals: Sergio Morales MD [Primary Care Provider] - Diet: Carb Consistent or DM2 and Heart Healthy Addtl Attending Provider Instructions: Follow up with your primary care provider in 1 weeks Check BMP in 1 week to monitor your electrolytes and renal function Monitor your blood pressure and bring your blood pressure log at your next appointment with your PCP Seek medical attention if pain reoccurs or worsening Hydrochlorothiazide was discontinued Hold potassium supplement for now since you are starting on losartan for your blood pressure that can increase your potassium level. Pending Studies at Discharge: No Stand-Alone Forms: My [facility] CMGE, Smoking Cessation Medications and DC Order Prescriptions: New lidocaine HCl 2 % Jelly 1 ml EXT BID Qty: 1 RF: 0 losartan 25 mg Tablet 25 mg PO HS Qty: 30 RF: 0 Continued vitamin E 200 unit Capsule 200 unit PO BID RF: 0 metoprolol succinate [Toprol XL] 50 mg tablet extended release 24 hr 50 mg PO QAM RF: 0 ranitidine HCl 300 mg tablet 300 mg PO HS RF: 0 glucosamine sulfate [Glucosamine] 500 mg Tablet 500 mg PO QAM RF: 0 cyanocobalamin (vitamin B-12) [Vitamin B-12] 250 mcg Tablet 250 mcg PO HS RF: 0 aspirin [Aspir-81] 81 mg Tablet,Delayed Release (Dr/Ec) 81 mg PO HS RF: 0 calcium carbonate [Calcium 600] 600 mg calcium (1,500 mg) Tablet 600 mg PO BID RF: 0 flaxseed oil 1,000 mg Capsule 1,000 mg PO BID RF: 0 lorazepam [Ativan] 0.5 mg Tablet 0.5 mg PO Q6H PRN (Reason: Anxiety) RF: 0 levothyroxine [Levoxyl] 50 mcg tablet 50 mcg PO QAM RF: 0 nitroglycerin [Nitrostat] 0.4 mg tablet, sublingual 0.4 mg sublingual UD RF: 0 diltiazem HCl [Cardizem CD] 120 mg capsule,extended release 24hr 120 mg PO QAM RF: 0 fluticasone propionate [Flonase Allergy Relief] 50 mcg/actuation [place],Suspension 2 spray INTRANASAL DAILY RF: 0 cinnamon bark [Cinnamon] 500 mg Capsule 500 mg PO DAILY RF: 0 ezetimibe-simvastatin [Vytorin 10-10] 10-10 mg tablet 1 tab PO PM RF: 0 Centrum Silver 0.4-300-250 mg-mcg-mcg Tablet 1 tab PO DAILY RF: 0 levalbuterol tartrate [Xopenex HFA] 45 mcg/actuation HFA aerosol inhaler 1 puff INHALATION Q4H PRN (Reason: Wheezing) RF: 0 magnesium oxide 400 mg magnesium Capsule 400 mg PO DAILY RF: 0 Jardiance 10 mg tablet 10 mg PO QAM RF: 0 Discontinued hydrochlorothiazide 25 mg tablet 25 mg PO QAM RF: 0 potassium chloride [Klor-Con M10] 10 mEq tablet,ER particles/crystals 10 meq PO TID RF: 0 Discharge Orders: Discharge Order (Routine); Ordered 06/27/19 Ordered By: Renetta Wilkerson Admission Data Admit Date/Time: 06/26/19 21:45 Attending Provider: Renetta Wilkerson Admit Provider: Jayden Mckeon Primary Care Provider: Sergio Morales Other Providers: Jayden Mckeon ; Edwin Orlando Other Interventions: Discharge Summary Assessment (RN) Last Done: 06/27/19 17:45 DC Date/Time DO NOT enter until pt leaves facility: 06/27/19 18:10
== END 2019-06-27 18:10 | disposition home or self-care (01) ==
LOC: ED 16:25 → 2S 16:25